=== PATIENT | male | born 1945 | race Caucasian/White ===

== ENCOUNTER → 2018-06-08 14:47 | Outpatient (CLI) | payer MEDICARE, SELFPAY ==
[2018-06-08 17:08] LABS: Protein, Urine (Random) 133.2 mg/dL (<11.9); Protein:Creat Ratio 2104 mg/g CRE (0-200)
== END ==
PROVIDERS: Family Provider Family Medicine; PCP Family Medicine; Visit Provider Internal Medicine Nephrology
DX: N18.3 Chronic kidney disease, stage 3 (moderate) (principal)
CPT/HCPCS: 82570; 84156

== ENCOUNTER → 2018-06-14 11:17 | Outpatient (CLI) | payer MEDICARE, SELFPAY ==
--- NOTE | 2018-06-14 11:22 | US_ITS ---
STUDY: RENAL ULTRASOUND - COMPLETE REASON FOR EXAM: Male, 73 years old. Chronic renal failure. TECHNIQUE: Ultrasound evaluation of the kidneys was performed with real-time and static morataya-scale imaging. COMPARISON: CT scan 05/04/2017.. FINDINGS: RIGHT KIDNEY: Normal location of the right kidney, which is normal in size. The right kidney measures 11.2 x 3.1 x 4.9 cm. There is a normal cortex of the right kidney. The renal cortex measures 1.5 cm. There is no right renal mass or cyst. There are no right renal calculi. There is no right hydronephrosis. DISTAL RIGHT URETER: There is non-visualization of the distal right ureter. There is no demonstrated right ureterovesical junction calculus. There is a visualized right ureteral jet. LEFT KIDNEY: Normal location of the left kidney, which is normal in size. The left kidney measures 10.8 x 4.3 x 5.4 cm. There is a normal cortex of the left kidney. The renal cortex measures 1.6 cm. There is no left renal mass or cyst. 7 mm calcification near the upper pole of the left kidney, most likely a vascular calcification also seen on the CT scan. There is no left hydronephrosis. DISTAL LEFT URETER: There is non-visualization of the distal left ureter. There is no demonstrated left ureterovesical junction calculus. There is a visualized left ureteral jet. BLADDER: The distended urinary bladder has a volume of 65 ml. There is a normal wall thickness of the distended urinary bladder. There is no demonstrated mass within the urinary bladder. There are no demonstrated bladder calculi. US/Kidney and Bladder IMPRESSION: There is no definite acute abnormality. No hydronephrosis. Normal renal sizes. Electronically Signed: Charli Fisher MD at 12:28 EST , Service support ,
== END ==
PROVIDERS: Family Provider Family Medicine; PCP Family Medicine; Referring Provider Internal Medicine Nephrology; Visit Provider Internal Medicine Nephrology
DX: N18.3 Chronic kidney disease, stage 3 (moderate) (principal)
CPT/HCPCS: 76770

== ENCOUNTER → 2018-09-20 07:45 | Outpatient (CLI) | payer MEDICARE, SELFPAY ==
--- NOTE | 2018-09-20 07:47 | US_ITS ---
STUDY: ABDOMINAL ULTRASOUND - RIGHT UPPER QUADRANT REASON FOR VISIT: Male, 73 years old. Epigastric pain, nausea TECHNIQUE: Ultrasound evaluation of the right upper quadrant was performed with real-time and static [place]cke[place]-scale imaging. TECHNICAL QUALITY: Adequate. COMPARISON: 2016 FINDINGS: Liver: The liver measures 17.9 cm. There is normal echogenicity of the liver. The bile ducts are within normal limits. There is hepatic color flow. The direction of portal flow is hepatopetal. There is no demonstrated mass lesion. Gallbladder: Normal distended gallbladder. The gallbladder wall measures 2.6 mm. There is a negative sonographic Galeas's sign. There is no pericholecystic fluid. There are no gallstones. Common Bile Duct (C.B.D.): The common bile duct measures 4.7 mm. Pancreas: Normal size of the head, body and tail of the pancreas. There is increased echogenicity of the pancreas. There is no demonstrated pancreatic mass or cyst. Right Kidney: Normal size of the right kidney. The right kidney measures 11.3 x 6.2 x 5.8 cm. Normal renal cortex. The right cortex measures 1.4 cm. There is no demonstrated renal mass or cyst. There is no right hydronephrosis. US/Abdomen Limited IMPRESSION: Hepatomegaly, no discrete lesion. Sonographically normal gallbladder Nonspecific echogenic pancreas Electronically Signed: Ramsey Miller MD at 12:59 EDT , Service support ,
== END ==
PROVIDERS: Family Provider Family Medicine; PCP Family Medicine; Referring Provider Internal Medicine Gastroenterology; Visit Provider Internal Medicine Gastroenterology
DX: K86.1 Other chronic pancreatitis (principal); R10.9 Unspecified abdominal pain
CPT/HCPCS: 76705

== ENCOUNTER → 2018-10-18 18:42 | Outpatient (CLI) | payer MEDICARE, SELFPAY | PROVIDERS: Family Provider Family Medicine; PCP Family Medicine; Visit Provider Family Medicine | DX: J44.9 Chronic obstructive pulmonary disease, unspecified (principal) | CPT/HCPCS: 87070; 87205 ==

== ENCOUNTER → 2018-10-19 07:15 | Outpatient (CLI) | payer MEDICARE, SELFPAY | PROVIDERS: Family Provider Family Medicine; PCP Family Medicine; Referring Provider Family Medicine; Visit Provider Family Medicine | DX: J44.9 Chronic obstructive pulmonary disease, unspecified (principal) ==

== ENCOUNTER → 2019-04-22 10:16 | Outpatient (CLI) | payer MEDICARE, SELFPAY ==
[2019-04-22 13:04] LABS: AST(SGOT) 13 U/L (15-37); Alanine Aminotransfer ALT/SGPT 18 U/L (16-61); Albumin, Serum 3.7 g/dL (3.2-5.0); Alkaline Phosphatase 82 U/L (45-117); Amylase 166 U/L (25-115); Bilirubin, Direct 0.09 mg/dL (0.00-0.30); Globulin 3.6 g/dL (2.2-4.2); Lipase 884 U/L (73-393); Protein, Total 7.3 g/dL (6.4-8.2)
== END ==
PROVIDERS: Family Provider Family Medicine; PCP Family Medicine; Referring Provider Family Medicine; Visit Provider Family Medicine
DX: K85.90 Acute pancreatitis without necrosis or infection, unspecified (principal)
CPT/HCPCS: 36415; 71046; 74177; 80048; 80076; 82150; 83690; 85025; 96360; 96361; 99284; J7030; Q9967; A4216

== ENCOUNTER 2019-04-22 21:45 | Emergency (ER) | payer MEDICARE, SELFPAY ==
[2019-04-22 21:46] VITALS: BP 168/82; PULSE 73; RESP 15; TEMP 36.4; O2SAT 95; BMI 31.4
--- NOTE | 2019-04-22 22:09 | RAD_ITS ---
HISTORY: Short of Breath/Dyspnea EXAMINATION/TECHNIQUE: XR Chest 2 Views: COMPARISON: None FINDINGS: Normal heart size. Coronary artery stent. Prominent lung volumes. No vascular congestion, pleural effusion, or pulmonary infiltration. No pneumothorax. Hypertrophic degenerative changes of the dorsal spine. RAD/Chest PA and Lateral IMPRESSION: No acute cardiopulmonary disease. at 2346 Reported and signed by: Feliz Rios MD Electronically Signed: Feliz Rios, at 23:45 EDT Tel , Service support ,
--- NOTE | 2019-04-22 22:09 | CT_ITS ---
HISTORY: PANCREATITIS, ELEVATED LABS, ABD PAIN, HX PANCREATITIS IN THE PAST, HTN, KS, HEART STENTS EXAMINATION: CT Abdomen And Pelvis W/ Contrast Injection TECHNIQUE: Helically acquired images were obtained of the abdomen and pelvis without oral or IV contrast as per renal stone protocol. A radiation dose optimization technique was used for this scan. IV Contrast dosage and agent: 100 cc Isovue-300 Oral contrast: None. COMPARISON: Abdominal ultrasound 09/20/[address] abdomen 05/04/2017 FINDINGS: Lower thorax: Right basilar mild dependent atelectasis. No pleural effusion. Small pericardial effusion. Coronary artery stents. No radiopaque gallstones and no biliary dilatation. Normal liver and spleen. Pancreas: The pancreas is well visualized and appears normal. No pancreatic ductal dilatation or CT findings of pancreatitis. Both kidneys are normal in position. Bilateral renal opacification without evidence of hydronephrosis, pyelonephritis, or suspicious renal lesion. The adrenal glands are not enlarged. Michael aorta is diffusely atherosclerotic and normal in caliber. No ascites or retroperitoneal lymph node enlargement. GI tract: No obstruction. Marked sigmoid diverticulosis. No diverticulitis seen. Nonvisualization of the appendix. Pelvis: Normal urinary bladder. The prostate gland is not enlarged. No free fluid or lymph node enlargement. Bones: No acute osseous abnormality. CT/Abdomen/Pelvis W IV Cont ONLY IMPRESSION: 1. Marked sigmoid diverticulosis. No diverticulitis or acute abdominal disease identified. 2. Normal CT pancreas. 3. Coronary artery stents with small pericardial effusion. Individualized dose optimization techniques were used for this CT. at 0120 Reported and signed by: Feliz Rios MD Electronically Signed: Feliz Rios, at 1:19 EDT Tel , Service support ,
[2019-04-22] MEDS: 0.9% Normal Saline 1,000 ML 1000 ML IV (22:14)
[2019-04-22 22:24] LABS: Absolute Lymphocyte Count 2.07 X10^3/uL (0.83-4.51); Absolute Neutrophil Count 3.6 X10^3/uL (2.0-7.7); Basophil# 0.04 X10^3/uL; Basophil% 0.6 % (0-1); Eosinophil# 0.41 X10^3/uL; Eosinophils% 5.9 % (0-5); Hematocrit 36.1 % (40-54); Hemoglobin 11.8 g/dL (13.0-16.5); Lymphocyte # 2.07 X10^3/ul (4.0); Lymphocyte % 29.6 % (19-41); Mean Corp Hgb Conc 32.7 g/dL (32-36); Mean Corpuscular Hgb 29.6 pg (27.0-32.0); Mean Corpuscular Volume 90.5 fL (80-94); Mean Platelet Vol. 10.1 fl (6.2-12.0); Monocyte# 0.91 X10^3/uL; NRBC Flagged by Analyzer 0 % (0-5); Neutrophil # 3.55 X10^3/uL (2.7-7.7); Neutrophil % 50.6 % (47-70); Platelet Count 160 K/mm3 (150-450); RBC Distribution Width CV 13.2 % (11.6-14.6); RBC Distribution Width SD 43.9 fl (35.1-43.9); Red Blood Count 3.99 M/mm3 (4.6-6.2)
--- NOTE | 2019-04-22 22:57 | ED.VIS.GEN ---
History of Present Illness Chief Complaint: Abd Pain Informant: Patient Onset: Month(s) - 2 Context: Gradual Onset Timing: Waxes and wanes Current Severity: Moderate Narrative: Patient is a 74-year-old male with history of intermittent episodes of pancreatitis present with elevated lipase. Patient saw his PCP today who ordered outpatient labs. He was found to have an elevated lipase of 884. Patient states this was ordered because he been having worsening epigastric abdominal pain over the past 2 months. He also notes that he has had diarrhea but states is a chronic diarrhea for the past year. Patient's been able to eat and drink. He states the pain is starting to bother him more. He denies any weight loss. He denies any chest pain but does note some shortness of breath with exertion intermittently. He states he currently does not feel short of breath. Patient states the pain is worse than his last episode in August. He denies any other complaints at this time. States he does not drink alcohol. He had a normal gallbladder ultrasound. Patient is on a statin. Is not sure why he gets these episodes of pancreatitis. He denies any associated nausea or vomiting. Prior similar symptoms: Yes - Pancreatitis Past Medical History - Allergies and Home Meds Allergies/Adverse Reactions: Allergies Sulfa (Sulfonamide Antibiotics) Allergy (Verified 04/22/19 21:50) Hives Primary Care Physician: Lara Josue MD [Primary Care Provider] - Past Medical History: - - Hypertension, hyperlipidemia, pancreatitis Surgical History: no surgical history Smoking Status: Former smoker Review of Systems All systems negative except as indicated Respiratory: Reports: Dyspnea on exertion Gastrointestinal: Reports: Abdominal pain, Diarrhea Physical Exam Vital Signs/Narrative: Vital Signs Temp Pulse Resp BP Pulse Ox 04/22/19 21:46 97.6 F L 73 15 168/82 H 95 Inital Vital Signs reviewed: Yes General: Well nourished, Well developed, No Acute Distress Head: Normocephalic, Atraumatic Eyes: Perrl, EOMI ENT: Moist mucous membranes, No rhinorrhea Neck: Supple, Nontender Cardiovascular: Regular rate, Regular rhythm, No murmurs Respiratory: No distress, CTA bilaterally, Chest nontender Abdomen: Soft, Nondistended, Normal bowel sounds, Tender, - - Epigastric region tenderness. Negative for: Guarding, Rebound tenderness, Galeas's sign Back: Nontender, Normal Inspection. Negative for: CVA tenderness Extremities: Nontender, No edema Skin: Normal color, No rash Neurological: Alert, Oriented x3, Cranial nerves II-XII grossly intact, Normal Strength, Normal Sensation Psychological: Normal affect, Normal Mood Diagnostic/Tx/Re-eval Chest X-Ray - ED: 2 View, Read by ED Physician, Read by Radiologist, No Acute Disease Clinical Impression(s) from Imaging Studies Chest X-Ray 04/22/19 22:09 IMPRESSION: No acute cardiopulmonary disease. at 2346 Reported and signed by: Feliz Rios MD Electronically Signed: Feliz Rios, at 23:45 EDT Tel , Service support , Laboratory Data 04/22/19 04/22/19 22:04 22:04 WBC 7.0 RBC 3.99 L Hgb 11.8 L Hct 36.1 L MCV 90.5 MCH 29.6 MCHC 32.7 RDW Std Deviation 43.9 RDW Coeff of Aida 13.2 Plt Count 160 MPV 10.1 Immature Gran % (Auto) 0.300 Neut % (Auto) 50.6 Lymph % (Auto) 29.6 [place] % (Auto) 13.0 H Eos % (Auto) 5.9 H Baso % (Auto) 0.6 Absolute Neuts (auto) 3.6 Absolute Lymphs (auto) 2.07 Nucleated RBC % 0 Sodium 143 Potassium 4.2 Chloride 111 H Carbon Dioxide 27.0 Anion Gap 5 BUN 25 H Creatinine 1.88 H Estim Creat Clear Calc 35.60 Est GFR (MDRD) Af Amer 45 L Est GFR (MDRD) Non-Af 37 L BUN/Creatinine Ratio 13.3 Glucose 121 H Calcium 8.8 - Medical Decision Making Evaluated for elevated lipase and outpatient labs. Has had 2 months of epigastric pain. Patient has a history of chronic pancreatitis. His pain is mild and he declines any pain medication or nausea medication while in the emergency room. He is given IV fluids. He has normal white blood cell count. A chest x-ray is because he says he has had some intermittent shortness of breath with activity. He currently is asymptomatic. This is not show any acute process. Patient does have very mildly decreased hemoglobin. He denies having any black or bloody stools. Patient does not require transfusion and I do not think he needs further evaluation of his mild anemia. Patient's creatinine appears to be near his baseline. CT the abdomen pelvis is interpreted by myself and does not show any acute pancreatic or abdominal process. As patient is not requiring pain medication nausea medicine and overall feels well I do not think requires admission for his pancreatitis. In addition while his lipase is elevated it is not significantly elevated. Patient states he does not want to be admitted to the hospital. I did discuss patient's ED course and history with on-call physician, Dr. Izquierdo. He is agreeable with the patient going home and following up with Dr. Bird in the office next week. Patient is offered pain and nausea medicine options but declines. Final CT results will be reviewed by Dr. Cotto. As long there is no significant abnormalities or acute intra-abdominal process patient will be discharged home. Patient is counseled on signs symptoms requiring return to emergency room. He verbalizes agreement understand this plan. ED Disposition - Plan for ED Patient: Disposition: Home or Assisted Living Diagnosis: Chronic pancreatitis Instructions: Chronic Pancreatitis Referrals: Lara Josue MD [Primary Care Provider] -
[2019-04-22 23:08] LABS: Anion Gap 5 (5-15); BUN 25 mg/dL (7-18); BUN/Creat Ratio 13.3 RATIO (10-20); Calcium,Total 8.8 mg/dL (8.5-10.1); Chloride 111 mmol/L (98-107); Creatinine, Serum 1.88 mg/dL (0.70-1.30); EST Glomerular Filtration Rate 37 mL/min (>60); Est Glom Filt Rate - Afr Amer 45 mL/min (>60); Glucose 121 mg/dL (74-106); Potassium 4.2 mmol/L (3.5-5.1); Sodium Level 143 mmol/L (136-145)
[2019-04-23 00:09] VITALS: BP 145/60; PULSE 66; RESP 18; O2SAT 96
[2019-04-23 01:33] VITALS: BP 154/76; PULSE 71; RESP 18; O2SAT 93
== END 2019-04-23 01:37 | disposition home or self-care (01) ==
PROVIDERS: Emergency Provider Emergency Medicine; Family Provider Family Medicine; PCP Family Medicine
DX: K86.1 Other chronic pancreatitis (principal); E78.5 Hyperlipidemia, unspecified; I10 Essential (primary) hypertension; Z87.891 Personal history of nicotine dependence; Z88.2 Allergy status to sulfonamides; R74.8 Abnormal levels of other serum enzymes
CPT/HCPCS: 71046; 74177; 80048; 85025; 99284; J7030; Q9967; A4216

== ENCOUNTER → 2019-04-27 10:24 | Outpatient (CLI) | payer MEDICARE, SELFPAY ==
[2019-04-22 21:46] VITALS: BMI 31.4
[2019-04-27 12:50] LABS: Amylase 149 U/L (25-115); Lipase 826 U/L (73-393)
== END ==
PROVIDERS: Family Provider Family Medicine; PCP Family Medicine; Referring Provider Family Medicine; Visit Provider Family Medicine
DX: K85.90 Acute pancreatitis without necrosis or infection, unspecified (principal)
CPT/HCPCS: 36415; 82150; 83690

== ENCOUNTER → 2019-05-11 10:56 | Outpatient (CLI) | payer MEDICARE, SELFPAY ==
[2019-04-22 21:46] VITALS: BMI 31.4
[2019-05-11 12:55] LABS: Amylase 109 U/L (25-115); Lipase 436 U/L (73-393)
== END ==
PROVIDERS: Family Medicine; Family Provider Family Medicine; PCP Family Medicine; Referring Provider Family Medicine; Visit Provider Family Medicine
DX: K85.90 Acute pancreatitis without necrosis or infection, unspecified (principal)
CPT/HCPCS: 36415; 82150; 83690

== ENCOUNTER → 2019-11-01 09:58 | Outpatient (CLI) | payer MEDICARE, SELFPAY ==
[2019-11-01 12:40] LABS: Amylase 121 U/L (25-115); Anion Gap 5 (5-15); BUN 24 mg/dL (7-18); BUN/Creat Ratio 12.6 RATIO (10-20); Calcium,Total 8.7 mg/dL (8.5-10.1); Chloride 110 mmol/L (98-107); Creatinine, Serum 1.91 mg/dL (0.70-1.30); EST Glomerular Filtration Rate 37 mL/min (>60); Est Glom Filt Rate - Afr Amer 44 mL/min (>60); Glucose 127 mg/dL (74-106); Lipase 696 U/L (73-393); Potassium 4.3 mmol/L (3.5-5.1); Sodium Level 140 mmol/L (136-145)
== END ==
PROVIDERS: PCP Family Medicine; Referring Provider Family Medicine; Visit Provider Family Medicine
DX: K85.90 Acute pancreatitis without necrosis or infection, unspecified (principal); N18.9 Chronic kidney disease, unspecified
CPT/HCPCS: 36415; 80048; 82150; 83690

== ENCOUNTER → 2020-05-02 09:49 | Outpatient (CLI) | payer MEDICARE, SELFPAY ==
[2020-05-02 12:48] LABS: Amylase 169 U/L (25-115); Anion Gap 5 (5-15); BUN 28 mg/dL (7-18); BUN/Creat Ratio 13.8 RATIO (10-20); Calcium,Total 8.8 mg/dL (8.5-10.1); Chloride 110 mmol/L (98-107); Cholesterol 167 mg/dL (200); Creatinine, Serum 2.03 mg/dL (0.70-1.30); EST Glomerular Filtration Rate 34 mL/min (>60); Est Glom Filt Rate - Afr Amer 41 mL/min (>60); Glucose 138 mg/dL (74-106); High Density Lipoprotein 39 mg/dL; Lipase 874 U/L (73-393); Potassium 4.5 mmol/L (3.5-5.1); Sodium Level 142 mmol/L (136-145); Triglycerides 194 mg/dL; Very Low Density Lipoprotein 39 mg/dL (5-40)
[2020-05-02 12:53] LABS: Hemoglobin A1c 6.6 % (3.8-5.6)
== END ==
PROVIDERS: PCP Family Medicine; Referring Provider Family Medicine; Visit Provider Family Medicine
DX: E11.9 Type 2 diabetes mellitus without complications (principal); I25.10 Atherosclerotic heart disease of native coronary artery without angina pectoris; K85.90 Acute pancreatitis without necrosis or infection, unspecified
CPT/HCPCS: 36415; 80048; 80061; 82150; 83036; 83690

== ENCOUNTER → 2020-11-02 10:32 | Outpatient (CLI) | payer MEDICARE, SELFPAY ==
[2020-11-02 12:44] LABS: AST(SGOT) 14 U/L (15-37); Alanine Aminotransfer ALT/SGPT 20 U/L (16-61); Albumin, Serum 3.6 g/dL (3.2-5.0); Alkaline Phosphatase 72 U/L (45-117); Amylase 78 U/L (25-115); Bilirubin, Direct 0.12 mg/dL (0.00-0.30); Globulin 3.6 g/dL (2.2-4.2); Lipase 182 U/L (73-393); Protein, Total 7.2 g/dL (6.4-8.2)
== END ==
PROVIDERS: PCP Family Medicine; Referring Provider Family Medicine; Visit Provider Family Medicine
DX: K85.90 Acute pancreatitis without necrosis or infection, unspecified (principal)
CPT/HCPCS: 36415; 80076; 82150; 83690

== ENCOUNTER → 2020-12-18 15:35 | Outpatient (CLI) | payer MEDICARE, SELFPAY ==
[2020-12-18 16:10] LABS: Bacteria 0 SEEN /hpf (None Seen); Mucous, Urine 0 SEEN /hpf (<or=2+); Red Blood Cells-Urine 0 SEEN /hpf (0-5)
[2020-12-18 16:40] LABS: Color, Urine Yellow (Yellow); Glucose, Dipstick 100 mg/dl (Normal); Ketone-Dipstick Negative (Negative); Leukocyte Esterase-Dipstick Negative /ul (Negative); Nitrite-Dipstick Negative (Negative); Occult Blood-Urine 25 /ul (Negative); Protein-Dipstick 100 mg/dl (Negative); Urine Bilirubin Dipstick Negative (Negative); Urine Clarity Clear (Clear); Urine Urobilinogen Normal (Normal); Urine pH 6.5 (5.0 - 8.0)
[2020-12-18 16:47] LABS: Squamous Epithelial Cells - UA 0 SEEN /hpf (0-5); White Blood Cells 0-5 SEEN /hpf (0-5)
== END ==
PROVIDERS: PCP Family Medicine; Referring Provider Nurse Practitioner Adult Health; Visit Provider Nurse Practitioner Adult Health
DX: R31.21 Asymptomatic microscopic hematuria (principal)
CPT/HCPCS: 81001

== ENCOUNTER → 2021-04-24 09:43 | Outpatient (CLI) | payer MEDICARE, SELFPAY ==
[2021-04-24 12:10] LABS: AST(SGOT) 9 U/L (15-37); Alanine Aminotransfer ALT/SGPT 15 U/L (16-61); Albumin, Serum 3.6 g/dL (3.2-5.0); Alkaline Phosphatase 65 U/L (45-117); Bilirubin, Direct 0.11 mg/dL (0.00-0.30); Cholesterol 159 mg/dL (200); High Density Lipoprotein 36 mg/dL; Protein, Total 7.6 g/dL (6.4-8.2); Triglycerides 221 mg/dL; Very Low Density Lipoprotein 44 mg/dL (5-40)
== END ==
PROVIDERS: PCP Family Medicine; Referring Provider Family Medicine; Visit Provider Family Medicine
DX: E11.9 Type 2 diabetes mellitus without complications (principal)
CPT/HCPCS: 36415; 80061; 80076

== ENCOUNTER → 2021-06-10 15:46 | Outpatient (CLI) | payer MEDICARE, SELFPAY ==
--- NOTE | 2021-06-10 15:47 | CT_ITS ---
STUDY: CT ABDOMEN AND PELVIS WITHOUT CONTRAST REASON FOR EXAM: Male, 76 years old. Right lower quadrant pain and fever RADIATION DOSAGE (If Supplied By Facility): CTDIvol = ( 17.70 ) mGy, DLP = ( 968.38 ) mGycm TECHNIQUE: Transaxial images were obtained from the dome of the diaphragm to the symphysis pubis with oral contrast, and without intravenous contrast. Sagittal and coronal images were reconstructed. Individualized dose optimization techniques were used for this CT. COMPARISON: 04/22/2019 FINDINGS: The visualized lung bases are unremarkable. The visualized portions of the heart are within normal limits. Normal liver. Normal gallbladder and extrahepatic biliary system. Normal spleen. Normal pancreas. Normal bilateral adrenal glands. Normal right kidney. Normal left kidney. Normal visualized stomach. Normal small intestine. Scattered colonic diverticula. There is abnormal thickening of the sigmoid colon with pericolonic inflammatory stranding consistent with acute sigmoid diverticulitis. No perforation or abscess. Findings best seen on axial images 122 through 134. There is non-visualization of the appendix. There is diffuse atherosclerotic calcification of the abdominal aorta, without a demonstrated aneurysm. Normal inferior vena cava. Normal retroperitoneum. Normal urinary bladder. Normal abdominal wall. There are diffuse degenerative changes of the visualized lumbar spine, and pelvis. CT/Abdomen/Pelvis without Cont IMPRESSION: Acute sigmoid diverticulitis without perforation or abscess No suspicious solid organ abnormality Appendix not visualized Degenerative bony changes Electronically Signed: Ramsey Miller MD at 19:15 EST , Service support ,
[2021-06-10 18:15] LABS: CREATININE FINGERSTICK 3.2 mg/dL (0.70-1.30)
== END ==
PROVIDERS: PCP Family Medicine; Visit Provider Family Medicine
DX: R10.31 Right lower quadrant pain (principal)
CPT/HCPCS: 74176

== ENCOUNTER → 2022-08-04 | Outpatient (CLI) | payer MEDICARE, SELFPAY ==
[2022-08-04 18:21] LABS: Anion Gap 9 (5-15); BUN 37 mg/dL (7-18); Calcium,Total 9.2 mg/dL (8.5-10.1); Chloride 111 mmol/L (98-107); Creatinine, Serum 3.09 mg/dL (0.70-1.30); EST Glomerular Filtration Rate 21 mL/min (>60); Est Glom Filt Rate - Afr Amer 25 mL/min (>60); Glucose 124 mg/dL (74-106); Potassium 4.9 mmol/L (3.5-5.1); Sodium Level 142 mmol/L (136-145)
== END | disposition home or self-care (01) ==
LOC: MFPLAB 11:50
PROVIDERS: PCP Family Medicine; Visit Provider Family Medicine
DX: E87.5 Hyperkalemia (principal)
CPT/HCPCS: 36415; 80048

== ENCOUNTER → 2022-08-11 | Outpatient (CLI) | payer MEDICARE, SELFPAY ==
--- NOTE | 2022-08-11 07:32 | CT_ITS ---
STUDY: CT ABDOMEN AND PELVIS WITHOUT CONTRAST REASON FOR EXAM: Male, 77 years old. CALCULUS OF KIDNEY RADIATION DOSAGE (If Supplied By Facility): CTDIvol = ( 16.18 ) mGy, DLP = ( 808.60 ) mGycm TECHNIQUE: Transaxial images were obtained from the dome of the diaphragm to the symphysis pubis without oral contrast, and without intravenous contrast. Sagittal and coronal images were reconstructed. Individualized dose optimization techniques were used for this CT. COMPARISON: Comparison is made with prior examination dated 06/10/2021. FINDINGS: There is a 1.4 cm x 2.2 cm pleural-based density in the posterior lateral aspect of the lingular segment of the left upper lobe. This is increased in size as compared to prior study. This may represent either progressive scarring versus possible nodule. A dedicated CT scan of the thorax is recommended for further evaluation. There is evidence of a coronary artery calcification. Stable small pericardial effusion along the anterior aspect of the pericardium as well as the left heart border. Normal liver. Normal gallbladder and extrahepatic biliary system. Normal spleen. Normal pancreas. Normal bilateral adrenal glands. Normal right kidney. Normal left kidney. Focal calcific plaque of the intrarenal arterial range. Normal visualized stomach. Normal small intestine. There are multiple colonic diverticula consistent with diverticulosis. The patient is status post appendectomy. There is diffuse atherosclerotic calcification of the abdominal aorta and its major visceral branches, without a demonstrated aneurysm. Normal inferior vena cava. Normal retroperitoneum. Normal urinary bladder. The prostate measures 3.8 cm x 4 cm. Normal abdominal wall. There are diffuse degenerative changes of the visualized lumbar spine. CT/Abdomen/Pelvis without Cont IMPRESSION: Coronary calcification as well as a small pericardial effusion. 1.4 cm x 2.2 cm pleural-based density in the posterolateral aspect of the lingular segment of the left upper lobe. This has increased in size as compared to prior study and may represent a focal area of scarring although a dedicated CT scan of the thorax is recommended for further evaluation. Electronically Signed: Kalpesh Valadez MD at 11:14 EST ,
== END | disposition home or self-care (01) ==
PROVIDERS: PCP Family Medicine; Referring Provider Urology; Visit Provider Urology
DX: N20.0 Calculus of kidney (principal)
CPT/HCPCS: 74176

== ENCOUNTER → 2022-08-21 | Outpatient (CLI) | payer MEDICARE, SELFPAY ==
--- NOTE | 2022-08-21 14:01 | CT_ITS ---
STUDY: CT CHEST WITH CONTRAST REASON FOR EXAM: Male, 77 years old. Lung nodule RADIATION DOSAGE (If Supplied By Facility): CTDIvol = ( 15.26 ) mGy, DLP = ( 693.06 ) mGycm TECHNIQUE: Transaxial imaging was performed following intravenous administration of IV 100mL Isovue-300. Multiplanar coronal and sagittal images were reformatted. Individualized dose optimization techniques were used for this CT. COMPARISON: Comparison is made with prior CT scan abdomen and pelvis dated 08/11/2022. FINDINGS: CHEST There is evidence of emphysematous changes more prominent in the upper lobes. Mild increased markings at the lung bases suggestive of scarring. Findings suggestive of scarring in the anterior aspect of the lingular segment of the left upper lobe as seen on axial image #89 and [address] A repeat CT scan in 6 months is recommended for further evaluation. There is no demonstrated pleural abnormality. There are calcifications of the coronary arteries. Stable mild degree of anterior pericardial thickening and small effusion. There are multiple small lymph nodes within the mediastinum, which are normal in size and morphology most compatible with reactive lymph hyperplasia. Normal hilar regions. Normal unenhanced pulmonary arteries. Normal aorta arch and descending thoracic aorta. There are multi-level degenerative changes of the thoracic spine. Fatty infiltration of the liver. CT/Chest WITH Contrast IMPRESSION: Emphysematous changes. Findings images of scarring in the lingular segment of the left upper lobe as described. A six-month follow-up CT scan is recommended. Electronically Signed: Kalpesh Valadez MD at 14:33 EST ,
[2022-08-21 14:15] VITALS: BP 142/73; PULSE 72; RESP 14; O2SAT 95; BMI 31.5
== END | disposition home or self-care (01) ==
LOC: CT 13:58
PROVIDERS: PCP Family Medicine; Referring Provider Family Medicine; Visit Provider Family Medicine
DX: R91.1 Solitary pulmonary nodule (principal); E11.22 Type 2 diabetes mellitus with diabetic chronic kidney disease
CPT/HCPCS: 71260; J7040; Q9967

== ENCOUNTER → 2023-03-04 | Outpatient (CLI) | payer MEDICARE, SELFPAY ==
--- NOTE | 2023-03-04 07:06 | CT_ITS ---
STUDY: CT CHEST WITH CONTRAST REASON FOR EXAM: Male, 77 years old. Follow up to abnormal chest CT with nodule RADIATION DOSAGE (If Supplied By Facility): CTDIvol = ( 17.53 ) mGy, DLP = ( 773.26 ) mGycm TECHNIQUE: Transaxial imaging was performed following intravenous administration of IV 100mL Isovue-300. Multiplanar coronal and sagittal images were reformatted. Individualized dose optimization techniques were used for this CT. COMPARISON: Comparison is made with prior study dated August 21, 2022. FINDINGS: CHEST Hyperinflation and emphysematous changes more prominent in the upper lobes. Mild linear scarring and bronchiectasis at the left lung base. The previously seen linear scarring in the posterior lingular segment of the left upper lobe is less evident at this time. There is no demonstrated pleural abnormality. There are calcifications of the coronary arteries. There are multiple small lymph nodes within the mediastinum, which are normal in size and morphology most compatible with reactive lymph hyperplasia. Normal hilar regions. Normal unenhanced pulmonary arteries. There is atherosclerotic calcification of the aortic arch. There are multi-level degenerative changes of the thoracic spine. Fatty infiltration of the liver. CT/Chest WITH Contrast IMPRESSION: Hyperinflation and emphysematous changes. Mild scarring at the left lung base and lingular segment of left upper lobe. Annual CT scan follow-up is recommended. Electronically Signed: Kalpesh Valadez MD at 10:19 EDT ,
[2023-03-04 07:29] VITALS: BP 127/66; PULSE 68; RESP 16; TEMP 36.3; O2SAT 98; BMI 31.8
[2023-03-04 11:32] VITALS: BP 139/72; PULSE 68; RESP 16; O2SAT 95
== END | disposition home or self-care (01) ==
LOC: CT 07:06
PROVIDERS: PCP Family Medicine; Referring Provider Family Medicine; Visit Provider Family Medicine
DX: R91.8 Other nonspecific abnormal finding of lung field (principal)
CPT/HCPCS: 71260; J7040; Q9967

== ENCOUNTER → 2023-12-11 | Outpatient (CLI) | payer MEDICARE, SELFPAY ==
[2023-12-11 12:16] LABS: Absolute Neutrophil Count 4.7 X10^3/uL (2.0-7.7); Basophil# 0.06 X10^3/uL; Basophil% 0.8 % (0-1); Eosinophil# 0.35 X10^3/uL; Eosinophils% 4.7 % (0-5); Hematocrit 23.1 % (40-54); Hemoglobin 7.1 g/dL (13.0-16.5); Lymphocyte % 17.5 % (19-41); Mean Corp Hgb Conc 30.7 g/dL (32-36); Mean Corpuscular Hgb 30.2 pg (27.0-32.0); Mean Corpuscular Volume 98.3 fL (80-94); Mean Platelet Vol. 10.7 fl (6.2-12.0); Monocyte# 0.94 X10^3/uL; Monocyte% 12.7 % (0-10); NRBC Flagged by Analyzer 0 % (0-5); Neutrophil # 4.74 X10^3/uL (2.7-7.7); Neutrophil % 63.8 % (47-70); Platelet Count 188 K/mm3 (150-450); RBC Distribution Width SD 57.2 fl (35.1-43.9); RET-HE 28.2 pg (30-35); Red Blood Count 2.35 M/mm3 (4.6-6.2); Reticulocyte Count 1.39 % (0.5-1.5); White Blood Count 7.4 K/mm3 (4.4-11.0)
[2023-12-11 13:06] LABS: Anion Gap 12 (5-15); BUN 65 mg/dL (7-18); BUN/Creat Ratio 11.1 RATIO (10-20); Calcium,Total 9.6 mg/dL (8.5-10.1); Chloride 112 mmol/L (98-107); Creatinine, Serum 5.84 mg/dL (0.70-1.30); EST Glomerular Filtration Rate 10 mL/min (>60); Est Glom Filt Rate - Afr Amer 12 mL/min (>60); Glucose 222 mg/dL (74-106); Iron 53 ug/dL (65-175); Iron Binding Capacity,Total 163 ug/dL (250-450); Potassium 5.1 mmol/L (3.5-5.1); Sodium Level 139 mmol/L (136-145)
== END | disposition home or self-care (01) ==
LOC: MFPLAB 10:50
PROVIDERS: PCP Family Medicine; Visit Provider Family Medicine
DX: E11.22 Type 2 diabetes mellitus with diabetic chronic kidney disease (principal); D50.9 Iron deficiency anemia, unspecified
CPT/HCPCS: 36415; 80048; 83540; 83550; 85025; 85045

== ENCOUNTER → 2024-01-04 | Outpatient (CLI) | payer MEDICARE, SELFPAY | END | disposition home or self-care (01) | LOC: LAB 17:09 | PROVIDERS: PCP Family Medicine; Referring Provider Family Medicine; Visit Provider Family Medicine | DX: D64.9 Anemia, unspecified (principal) | CPT/HCPCS: 36415; 86850; 86900; 86901; 86920; 86922 ==

== ENCOUNTER 2024-01-05 07:36 | Outpatient (CLI) | payer MEDICARE, SELFPAY ==
[2024-01-05 08:05] VITALS: BP 125/62; PULSE 62; RESP 16; TEMP 35.9; O2SAT 97; BMI 28.1
[2024-01-05 08:36] VITALS: BP 125/71; PULSE 64; RESP 16; TEMP 36.4; O2SAT 95
[2024-01-05 09:39] VITALS: BP 111/67; PULSE 82; RESP 16; TEMP 36.3; O2SAT 94
[2024-01-05 10:35] VITALS: BP 129/68; PULSE 81; RESP 16; TEMP 36.2; O2SAT 94
[2024-01-05 11:43] VITALS: BP 134/77; PULSE 80; RESP 16; TEMP 36.4; O2SAT 95
[2024-01-05 12:15] VITALS: BP 129/71; PULSE 87; RESP 16; TEMP 36.4; O2SAT 97
== END 2024-01-05 23:59 | disposition home or self-care (01) ==
LOC: MEDOUTP 07:37
PROVIDERS: PCP Family Medicine; Referring Provider Family Medicine; Visit Provider Family Medicine
DX: D64.9 Anemia, unspecified (principal)
CPT/HCPCS: 36415; 36430; 86850; 86900; 86901; 86920; 86922; J7040; P9016; A4216